=== PATIENT | female | born 1965 | race Caucasian/White ===

== ENCOUNTER 2019-02-03 20:11 | Inpatient (IN) | payer OTHER ==
[~2019-02-03] VITALS: Ht 157.5 cm; Wt 66.8 kg
[2019-02-03] MEDS ORDERED: SODIUM CHLORIDE FLUSH 10ML SYR IVF ONE (20:30)
[2019-02-03 20:50] VITALS: BP 119/75
--- NOTE | 2019-02-03 21:19 | NUR ---
PT ASSISTED TO BATHROOM WITH WHEELCHAIR. PT TOLERATED WELL. PT BACK IN BED AND PLACED ON ALL MONITORS. CALL LIGHT IN REACH.
[2019-02-03] MEDS ORDERED: D5%-0.45NACL+KCL 20MEQ 1,000 ML IV SCH (22:59)
[2019-02-03] MEDS ORDERED: ONDANSETRON 2MG/ML, 2ML IVPush PRN (23:00)
[2019-02-03 23:26] VITALS: BP 119/75
[2019-02-03 23:40] LABS: FREE T4 (FREE THYROXINE) 1.04 ng/dL (0.76-1.46); TROPONIN I < 0.015 ng/mL (0.000-0.045)
[2019-02-04 01:23] VITALS: BP 122/78
[2019-02-04 05:58] LABS: BASOPHILS # (AUTO) 0.01 x10^3/uL (0-0.1); BASOPHILS % (AUTO) 0 % (0-1); EOSINOPHILS # (AUTO) 0.02 x10^3/uL (0-0.4); EOSINOPHILS % (AUTO) 0 % (1-7); LYMPHOCYTES # (AUTO) 2.24 x10^3/uL (1-3.4); LYMPHOCYTES % (AUTO) 30 % (22-44); MD NO; MEAN CORPUSCULAR HEMOGLOBIN 30.7 pg (27.0-34.8); MEAN CORPUSCULAR HGB CONC 33.2 g/dL (32.4-35.8); MEAN CORPUSCULAR VOLUME 92.6 fL (80-100); MEAN PLATELET VOLUME 7.6 fL (7.4-10.4); MONOCYTES # (AUTO) 0.51 x10^3/uL (0.2-0.8); MONOCYTES % (AUTO) 7 % (2-9); NEUTROPHILS # (AUTO) 4.63 x10^3/uL (1.8-6.8); NEUTROPHILS % (AUTO) 63 % (42-75); PLATELET COUNT 207 x10^3/uL (130-400); RED BLOOD COUNT 3.94 x10^6/uL (3.82-5.3); RED CELL DISTRIBUTION WIDTH 13.3 % (9.6-15.2)
[2019-02-04 06:14] LABS: CHLORIDE 114 mmol/L (98-107)
[2019-02-04 06:23] LABS: ANION GAP 7 mmol/L (5-15); CALCIUM 8.5 mg/dL (8.5-10.1); CHOL/HDL RATIO 4.2; CHOLESTEROL, TOTAL 201 mg/dL (140-239); HDL CHOL % 24 % (28-40); HDL CHOLESTEROL (DIRECT) 48 mg/dL (40-60); LDL CHOLESTEROL,CALCULATED 129 mg/dL (54-169); LDL/HDL RATIO 2.7 (0.5-3.0); TRIGLYCERIDES 121 mg/dL (50-200); VLDL CHOLESTEROL 24 mg/dL (0-25)
[2019-02-04 08:08] VITALS: BP 116/64
[2019-02-04] MEDS: SODIUM CHLORIDE 0.9% 1,000 ML IV SCH ×2 (12:14→22:40)
[2019-02-04] MEDS ORDERED: SODIUM CHLORIDE 0.9% 1,000 ML IV SCH (13:14)
[2019-02-04 14:00] VITALS: BP 133/73
[2019-02-04] MEDS ORDERED: CEFAZOLIN PMX 1GM/50ML 50 ML ONE (14:46)
[2019-02-04] MEDS ORDERED: MIDAZOLAM 1 MG/ML, 5ML ONE (14:46)
[2019-02-04] MEDS ORDERED: FENTANYL PF 100 MCG/2ML ONE (14:46)
[2019-02-04] MEDS ORDERED: LIDOCAINE 2%, 20ML ONE (14:47)
[2019-02-04] MEDS ORDERED: CEFAZOLIN 1,000 MG ONE (14:47)
[2019-02-04] MEDS ORDERED: ONDANSETRON 2MG/ML, 2ML ONE (14:57)
[2019-02-04] MEDS ORDERED: HYDROcodone/APAP 5/325 TABLET PO PRN (16:30)
[2019-02-04] MEDS ORDERED: HOLD MEDICATION MC PRN (16:30)
[2019-02-04] MEDS: ACETAMINOPHEN 325 MG TABLET PO PRN ×2 (16:35→22:40)
[2019-02-04 20:32] VITALS: BP 109/72
[2019-02-04] MEDS: SODIUM CHLORIDE FLUSH 10ML SYR IVF SCH (21:09)
[2019-02-04] MEDS: CEFAZOLIN PMX 1GM/50ML 50 ML IVPB SCH (22:39)
[2019-02-05 01:32] VITALS: BP 109/73
[2019-02-05 05:46] LABS: BASOPHILS # (AUTO) 0.02 x10^3/uL (0-0.1); BASOPHILS % (AUTO) 0 % (0-1); EOSINOPHILS # (AUTO) 0.21 x10^3/uL (0-0.4); EOSINOPHILS % (AUTO) 3 % (1-7); LYMPHOCYTES # (AUTO) 2.41 x10^3/uL (1-3.4); LYMPHOCYTES % (AUTO) 34 % (22-44); MD NO; MEAN CORPUSCULAR HEMOGLOBIN 30.6 pg (27.0-34.8); MEAN CORPUSCULAR HGB CONC 32.9 g/dL (32.4-35.8); MEAN CORPUSCULAR VOLUME 93.1 fL (80-100); MEAN PLATELET VOLUME 7.4 fL (7.4-10.4); MONOCYTES # (AUTO) 0.54 x10^3/uL (0.2-0.8); MONOCYTES % (AUTO) 8 % (2-9); NEUTROPHILS % (AUTO) 55 % (42-75); PLATELET COUNT 183 x10^3/uL (130-400); RED BLOOD COUNT 3.77 x10^6/uL (3.82-5.3); RED CELL DISTRIBUTION WIDTH 13.5 % (9.6-15.2)
[2019-02-05 05:51] LABS: CHLORIDE 116 mmol/L (98-107)
[2019-02-05 06:00] LABS: ALANINE AMINOTRANSFERASE 23 U/L (12-78); ALBUMIN 3.1 g/dL (3.4-5.0); ALKALINE PHOSPHATASE 57 U/L (45-117); ANION GAP 6 mmol/L (5-15); BILIRUBIN,TOTAL 0.7 mg/dL (0.2-1.0); CALCIUM 8.2 mg/dL (8.5-10.1); CREATININE 0.81 mg/dL (0.55-1.02); TOTAL PROTEIN 5.9 g/dL (6.4-8.2)
[2019-02-05] MEDS: CEFAZOLIN PMX 1GM/50ML 50 ML IVPB SCH (06:35)
[2019-02-05] MEDS: ACETAMINOPHEN 325 MG TABLET PO PRN (06:41)
[2019-02-05 07:07] VITALS: BP 115/69
[2019-02-05] MEDS: SODIUM CHLORIDE FLUSH 10ML SYR IVF SCH (09:40)
== END 2019-02-05 12:45 | disposition home or self-care (01) | DRG 244 ==
LOC: ED 21:20 → EDIP 21:25 → 5SO 22:10 → DCLOUNGE 02-05 12:29
PROVIDERS: ADMIT Family Medicine; ATTEND Family Medicine
PROC: 0JH606Z Insertion of Pacemaker, Dual Chamber into Chest Subcutaneous Tissue and Fascia, Open Approach (ICD-10-PCS; principal; 2019-02-04)
PROC: 02HK3JZ Insertion of Pacemaker Lead into Right Ventricle, Percutaneous Approach (ICD-10-PCS; 2019-02-04)
PROC: 02H63JZ Insertion of Pacemaker Lead into Right Atrium, Percutaneous Approach (ICD-10-PCS; 2019-02-04)
DX: R00.1 Bradycardia, unspecified (principal); E78.5 Hyperlipidemia, unspecified; I45.89 Other specified conduction disorders; M17.10 Unilateral primary osteoarthritis, unspecified knee; Z87.891 Personal history of nicotine dependence
CPT/HCPCS: 36415; J3490; 33208; 71045; 80048; 80053; 80061; 83735; 84439; 84443; 84481; 84484; 85025; 93005; 93017; 93306; 99156; 99157; 99285; C1779; C1785; C1892; G0378; J0690; J2250; J2405; J3010; J3480; J7030